=== PATIENT | male | born 1950 | race Caucasian/White ===

== ENCOUNTER → 2020-07-04 | Outpatient (CLI) | payer OTHER ==
[~2020-07-04] MED LIST: ALDACTONE25 MG PO; AMIODARONE HYD200 MG PO; CARVEDILOL25 MG PO; ELIQUIS5 M1 PO; GLUCOTROL10 MG PO; KLOR-CON M2020 ME1 PO; LASIX40 MG PO; LOVASTATIN40 MG PO; PRINIVIL20 M1 PO
== END | disposition home or self-care (01) ==
LOC: CARD 09:30
PROVIDERS: ATTEND Specialist
DX: I08.0 Rheumatic disorders of both mitral and aortic valves (principal); I48.91 Unspecified atrial fibrillation; I42.9 Cardiomyopathy, unspecified; I50.9 Heart failure, unspecified

== ENCOUNTER 2020-08-01 16:56 | Inpatient (IN) | payer OTHER ==
[~2020-08-01] VITALS: Ht 167.6 cm; Wt 58.8 kg
[2020-08-01 21:13] VITALS: BP 140/83
[2020-08-01 21:39] LABS: BASO % 0.1 % (0.0-1.0); EOS # 0.1 10*3/uL (0.0-0.4); EOS % 0.8 % (1.0-4.0); HEMATOCRIT 46.1 % (42.0-52.0); LYMPH % 11.4 % (27.0-41.0); MEAN CELL VOLUME 80.3 fl (80.0-94.0); MEAN CORPUSCULAR HGB 25.1 pg (27.0-31.0); MEAN CORPUSCULAR HGB CONC 31.2 g/dl (33.0-37.0); MONO # 0.8 10*3/uL (0.1-1.0); MONO % 8.9 % (3.0-9.0); NEUT # 6.8 10*3/uL (2.3-7.9); NEUT % 78.5 % (47.0-73.0); RED BLOOD COUNT 5.74 10*6/uL (4.50-5.90); RED CELL DISTRI WIDTH 18.4 % (0-14.5); WHITE BLOOD COUNT 8.7 10*3/uL (4.8-10.8)
[2020-08-01 21:55] LABS: ALBUMIN 3.8 gm/dl (3.1-4.5); ALKALINE PHOSPHATASE 56 U/L (45-117); BUN 30 mg/dl (7-24); CHLORIDE 106 mmol/L (98-107); CREATININE 1.29 mg/dL (0.70-1.30); POTASSIUM 4.4 mmol/L (3.5-5.1); SGOT/AST 12 IU/L (3-35); SGPT/ALT 22 U/L (12-78); SODIUM 140 mmol/L (136-145); TOTAL PROTEIN 7.6 gm/dL (6.4-8.2)
[2020-08-01 21:56] LABS: MEAN PLATELET VOLUME 13.5 fl (9.6-12.3); PLATELET COUNT AUTOMATED 148 10*3/uL (130-400)
[2020-08-02 00:28] VITALS: BP 144/79
[2020-08-02] MEDS ORDERED: PRINIVIL20 M1 PO (01:49)
[2020-08-02] MEDS ORDERED: LOVASTATIN40 MG PO (01:50)
[2020-08-02] MEDS ORDERED: CARVEDILOL25 MG PO (01:51)
[2020-08-02] MEDS ORDERED: AMIODARONE HYD200 MG PO (01:52)
[2020-08-02] MEDS ORDERED: KLOR-CON M2020 ME1 PO (01:52)
[2020-08-02] MEDS ORDERED: GLUCOTROL10 MG PO (01:53)
[2020-08-02] MEDS ORDERED: ELIQUIS5 M1 PO (01:53)
[2020-08-02 04:15] VITALS: BP 161/78
[2020-08-02 07:50] LABS: BASO % 0.2 % (0.0-1.0); EOS % 0.5 % (1.0-4.0); HEMATOCRIT 48.5 % (42.0-52.0); LYMPH # 0.9 10*3/uL (1.3-4.4); LYMPH % 11.2 % (27.0-41.0); MEAN CORPUSCULAR HGB 24.9 pg (27.0-31.0); MEAN CORPUSCULAR HGB CONC 31.1 g/dl (33.0-37.0); MONO # 0.8 10*3/uL (0.1-1.0); MONO % 9.8 % (3.0-9.0); NEUT # 6.5 10*3/uL (2.3-7.9); NEUT % 78.1 % (47.0-73.0); PLATELET COUNT AUTOMATED 154 10*3/uL (130-400); RED BLOOD COUNT 6.06 10*6/uL (4.50-5.90); RED CELL DISTRI WIDTH 18.5 % (0-14.5); WHITE BLOOD COUNT 8.3 10*3/uL (4.8-10.8)
[2020-08-02 07:59] LABS: ACT PARTIAL THROMBO TIME 30.5 SECONDS (20.0-32.1); INTERNATIONAL NORM RATIO 1.1 (2.0-3.5)
[2020-08-02 08:21] LABS: BUN 29 mg/dl (7-24); CHLORIDE 103 mmol/L (98-107); CHOLESTEROL 213 mg/dL (<200); POTASSIUM 4.1 mmol/L (3.5-5.1); SODIUM 140 mmol/L (136-145); TRIGLYCERIDES 168 mg/dl (<150); VLDL CHOLESTEROL 34 mg/dL (6-40)
[2020-08-02 08:31] LABS: HDL CHOLESTEROL 54 mg/dl (40-60); LDL CHOLESTEROL 125 mg/dL (9-159)
[2020-08-02 08:58] LABS: VITAMIN D, 25-HYDROXY 22.3 ng/mL (30-100)
[2020-08-02 19:42] VITALS: BP 118/73
[2020-08-02 22:07] VITALS: BP 111/78
[2020-08-03] VITALS (7 sets, daily range): BP systolic 106–132; BP diastolic 41–83
[2020-08-04] VITALS: BP 106/71
[2020-08-04 07:00] LABS: ALBUMIN 3.4 gm/dl (3.1-4.5); ALKALINE PHOSPHATASE 55 U/L (45-117); BUN 24 mg/dl (7-24); CHLORIDE 97 mmol/L (98-107); CREATININE 1.26 mg/dL (0.70-1.30); SGOT/AST 16 IU/L (3-35); SGPT/ALT 22 U/L (12-78); SODIUM 137 mmol/L (136-145); TOTAL PROTEIN 7.1 gm/dL (6.4-8.2)
[2020-08-04 07:36] LABS: POTASSIUM 3.1 mmol/L (3.5-5.1)
[2020-08-04 08:00] VITALS: BP 124/90
[2020-08-04 12:00] VITALS: BP 122/86
[2020-08-04] MEDS ORDERED: ALDACTONE25 MG PO (13:24)
[2020-08-04] MEDS ORDERED: LASIX40 MG PO (13:24)
== END 2020-08-04 17:19 | disposition home health service (06) | DRG 292 ==
LOC: ED 16:56 → 5E 23:55 → EDHOLD 23:55 → 5E 08-03 00:14
PROVIDERS: Hospitalist; Nurse Practitioner Family; Student in an Organized Health Care Education/Training Program; ADMIT Internal Medicine; ATTEND Internal Medicine
DX: I11.0 Hypertensive heart disease with heart failure (principal); I48.20 Chronic atrial fibrillation, unspecified; J98.11 Atelectasis; I50.33 Acute on chronic diastolic (congestive) heart failure; E11.9 Type 2 diabetes mellitus without complications; E78.5 Hyperlipidemia, unspecified; Z95.810 Presence of automatic (implantable) cardiac defibrillator; Z82.49 Family history of ischemic heart disease and other diseases of the circulatory system; Z82.5 Family history of asthma and other chronic lower respiratory diseases; Z79.899 Other long term (current) drug therapy

== ENCOUNTER → 2020-08-06 | Outpatient (CLI) | payer OTHER ==
[2020-08-06 15:30] LABS: CREATININE 1.49 mg/dL (0.70-1.30); POTASSIUM 4.1 mmol/L (3.5-5.1)
== END | disposition home or self-care (01) ==
LOC: LAB 14:37
PROVIDERS: ATTEND Internal Medicine
DX: I50.23 Acute on chronic systolic (congestive) heart failure (principal)

== ENCOUNTER → 2021-04-04 | Outpatient (CLI) | payer OTHER | END | disposition home or self-care (01) | LOC: CARD 12:38 | PROVIDERS: ATTEND Internal Medicine Cardiovascular Disease | DX: I08.0 Rheumatic disorders of both mitral and aortic valves (principal); I27.20 Pulmonary hypertension, unspecified; I42.8 Other cardiomyopathies ==